=== PATIENT | female | born 1975 | race Two or more races ===

== ENCOUNTER → 2024-10-18 | Outpatient (CLI) | payer OTHER ==
[2024-10-18 10:15] LABS: Hematocrit 44.1 % (36.0-46.0); Hemoglobin 15.2 g/dL (12.2-16.2); Mean Corpuscular Hemoglobin 29.4 pg (28.0-32.0); Mean Corpuscular Hgb Conc. 34.4 g/dL (32.0-36.0); Mean Corpuscular Volume 85.5 fL (80.0-100.0); Platelet Count (auto) 382 10^3/uL (140-450); Red Blood Cells 5.16 10^6/uL (4.0-5.20); White Blood Cell 15.8 10^3/uL (4.4-10.8)
[2024-10-18 10:28] LABS: Basophils % (manual) 0 (0.0-2.0); Blast Cells 0; Metamyelocytes % 0; Myelocytes % 0; Promyelocytes % 0; Reactive Lymphocytes 0
[2024-10-18 11:17] LABS: Alanine Aminotransferase 16 U/L (7-40); Albumin 4.6 g/dL (3.2-4.8); Alkaline Phosphatase 79 U/L (46-116); Anion Gap 8 (5-15); BUN/Creatinine Ratio 14.9 (10.0-20.0); Blood Urea Nitrogen 10 mg/dL (9-23); Calcium 9.6 mg/dL (8.7-10.4); Carbon Dioxide 27 mmol/L (20-31); Chloride 102 mmol/L (98-107); Cholesterol 180 mg/dL (< 200); Glucose 91 mg/dL (74-106); HDL Cholesterol 43 mg/dL (40-59); Potassium 3.9 mmol/L (3.5-5.1); Sodium 137 mmol/L (136-145); Total Protein 7.4 g/dL (5.7-8.2); Triglycerides 132 mg/dL (< 150)
[2024-10-18 11:18] LABS: Bilirubin, Total 0.4 mg/dL (0.2-1.0)
[2024-10-18 11:24] LABS: Aspartate Aminotransferase 13 U/L (13-40); LDL Cholesterol 127 mg/dL (< 100)
[2024-10-18 11:31] LABS: Phencyclidine Screen, Urine Neg (NEGATIVE)
[2024-10-18 11:33] LABS: Amphetamine Screen, Urine Neg (NEGATIVE); Barbiturate Scree,Urine Neg (NEGATIVE); Benzodiazephine Screen, Urine Neg (NEGATIVE); Cannabinoid Screen, Urine Neg (NEGATIVE); Cocaine Screen, Urine Neg (NEGATIVE); Opiate Scree,Urine Neg (NEGATIVE)
[2024-10-18 13:06] LABS: Hepatitis A Total Antibody Positive (Negative); Hepatitis B Surface Antibody Positive (Negative); Hepatitis B Surface Antigen Negative (Negative); Hepatitis C Antibody Negative (Negative)
[2024-10-18 13:54] LABS: Band Neutrophils % (manual) 4; Eosinophils % (manual) 1 (0-7); Lymphocytes % (manual) 21 (10.0-50.0); Monocytes % (manual) 8 (0-12); Platelet Estimate Adequate; RBC Morphology Normal
== END | disposition home or self-care (01) ==
LOC: LAB 09:38
PROVIDERS: ATTEND Licensed Practical Nurse
DX: Z13.6 Encounter for screening for cardiovascular disorders (principal); Z13.1 Encounter for screening for diabetes mellitus; Z13.220 Encounter for screening for lipoid disorders; Z11.3 Encounter for screening for infections with a predominantly sexual mode of transmission; Z12.11 Encounter for screening for malignant neoplasm of colon; E55.9 Vitamin D deficiency, unspecified; E03.9 Hypothyroidism, unspecified
CPT/HCPCS: 36415; 80053; 80061; 80307; 82043; 82274; 82306; 82607; 83036; 84443; 85007; 85027; 86703; 86704; 86706; 86708; 86803; 87340